=== PATIENT | female | born 1990 | race Two or more races ===

== ENCOUNTER 2019-02-01 04:13 | Emergency (ER) | payer MEDICAID ==
[~2019-02-01] VITALS: Ht 172.7 cm; Wt 65.8 kg
[2019-02-01 04:40] VITALS: BP 104/87
--- NOTE | 2019-02-01 04:40 | NUR ---
ED Nurse Note: pt walked in c/o sorethroat since yesterday morning and worsen, pt reports she can't eat nor drink nor talk. noted swollen tonsil with white exudates and redness. will cont monitor. resp even and unlabored on RA, airway intact.
[2019-02-01] MEDS ORDERED: Dexamethasone 4mg/ml vial IM ONE (05:00)
[2019-02-01] MEDS ORDERED: Augmentin 875mg Tab ORAL ONE (05:00)
[2019-02-01] MEDS ORDERED: TYLENOL EXTRA500 MG ORAL (05:01)
[2019-02-01] MEDS ORDERED: AUGMENTIN 875-1 EAC1 ORAL (05:01)
--- NOTE | 2019-02-01 05:05 | NUR ---
ED Nurse Note: pt cleared to be d/c per ERMD, pt discharge and aftercare instruction provided w/ prescription, pt education done via discussion and handout, pt advised to follow up with pcp or return to ed if changes in condition, pt verbalized understanding and agrees with plan, vss, ambulatory w/ steady gait, left w/ all belongings. pt accompanied by parent.
[2019-02-01 05:06] VITALS: BP 113/87
--- NOTE | 2019-02-01 05:10 | Emergency Room Report ---
History of Present Illness General Chief Complaint: Sore Throat Source: Patient Present Illness HPI 28-year-old female presents ED for evaluation. Complaining of sore throat 2 days. Pain is throbbing, 10 out of 10, nonradiating. Unable to swallow because of pain. Denies sick contacts or recent travel. Denies fevers or chills. Denies cough. Ear ache. No other aggravating relieving factors. Denies any other associated symptoms Allergies: Coded Allergies: No Known Allergies (Unverified , 02/01/19) Patient History Past Medical History: none Past Surgical History: none Pertinent Family History: none Social History: Denies: smoking, alcohol use, drug use Last Menstrual Period: 01/04/19 Now: No Immunizations: UTD Reviewed Nursing Documentation: PMH: Agreed; PSxH: Agreed Nursing Documentation-PMH Past Medical History: No Stated History Review of Systems All Other Systems: negative except mentioned in HPI Physical Exam Vital Signs Date Time Temp Pulse Resp B/P (MAP) Pulse Ox O2 Delivery O2 Flow Rate FiO2 02/01/19 04:24 97.9 98 14 95 Room Air Sp02 EP Interpretation: reviewed, normal General Appearance: no apparent distress, alert, GCS 15, non-toxic Head: normocephalic, atraumatic Eyes: bilateral eye normal inspection, bilateral eye PERRL ENT: hearing grossly normal, normal voice, TMs + canals normal, pharyngeal erythema, tonsillar exudate Neck: full range of motion, supple/symm/no masses Respiratory: chest non-tender, lungs clear, normal breath sounds, speaking full sentences Cardiovascular #1: regular rate, rhythm, no edema Cardiovascular #2: 2+ carotid (R), 2+ carotid (L), 2+ radial (R), 2+ radial (L) , 2+ dorsalis pedis (R), 2+ dorsalis pedis (L) Gastrointestinal: normal bowel sounds, non tender, soft, non-distended, no guarding, no rebound Rectal: deferred Genitourinary: normal inspection, no CVA tenderness Musculoskeletal: back normal, gait/station normal, normal range of motion, non- tender Neurologic: alert, oriented x3, responsive, motor strength/tone normal, sensory intact, speech normal Psychiatric: judgement/insight normal, memory normal, mood/affect normal, no suicidal/homicidal ideation Reflexes: 3+ bicep (R), 3+ bicep (L), 3+ tricep (R), 3+ tricep (L), 3+ knee (R) , 3+ knee (L) Skin: normal color, no rash, warm/dry, well hydrated Lymphatic: adenopathy Medical Decision Making Diagnostic Impression: Primary Impression: Pharyngitis Qualified Codes: J02.9 - Acute pharyngitis, unspecified ER Course Hospital Course 28-year-old female presents to ED complaining of sore throat Differential diagnoses include: URI, pharyngitis, otitis media Clinical course Patient placed on stretcher. After initial history, physical exam reveals a female in no acute distress. Bilateral TM unremarkable. There is pharyngeal erythema w/ tonsillar exudates. Noted lymphadenopathy. Clinical findings consistent with pharyngitis. Discussed findings with patient. Given Decadron and Augmentin in ED. We'll discharged to home with prescriptions for Augmentin. Safe for discharge close outpatient follow-up. Does not have a PMD. We'll provide referrals Diagnosis - pharyngitis Stable and discharged home with prescriptions for augmentin. Instructed to followup with PMD. return to ED if symptoms recur or worsen Last Vital Signs Date Time Temp Pulse Resp B/P (MAP) Pulse Ox O2 Delivery O2 Flow Rate FiO2 02/01/19 04:24 97.9 98 14 95 Room Air Status: improved Disposition: HOME, SELF-CARE Condition: Stable Scripts Acetaminophen* (TYLENOL EXTRA STRENGTH*) 500 Mg Tablet 500 MG ORAL Q8H PRN for Prn Headache/Temp > 101, #30 TAB 0 Refills Prov: Chi Fountain MD 02/01/19 Amoxicillin/Potassium Clav 875-125* (AUGMENTIN 875-125 TABLET*) 1 Each Tablet 1 TAB ORAL TWICE A DAY, #14 TAB Prov: Chi Fountain MD 02/01/19 Referrals: [facility] Patient Instructions: Pharyngitis, [id number] Chi Fountain MD February 01, 2019 05:10
== END 2019-02-01 07:08 | disposition home or self-care (01) ==
LOC: EMR 04:50
DX: J02.9 Acute pharyngitis, unspecified (principal)
CPT/HCPCS: 96372; 99283; J1100